=== PATIENT | female | born 1965 | race Caucasian/White ===

== ENCOUNTER 2023-01-04 05:42 | Emergency (ER) | payer BC | END 2023-01-04 06:50 | disposition home or self-care (01) | LOC: CSHERS 05:42 | DX: H92.03 Otalgia, bilateral (principal); J02.9 Acute pharyngitis, unspecified; E78.5 Hyperlipidemia, unspecified; I10 Essential (primary) hypertension | CPT/HCPCS: 99282 ==

== ENCOUNTER 2023-11-21 05:48 | Day surgery (SDC) | payer BC ==
[2023-11-16 09:00] VITALS: BMI 54.8
[2023-11-21] MEDS ORDERED: Bupivacaine/Epinephrine 0.25% 30 ML VIAL ONE (06:50)
[2023-11-21] MEDS ORDERED: LevoFLOXacin D5W 500 mg (100 mL) BAG ONE (07:11)
[2023-11-21] MEDS ORDERED: PROPOFOL 20 ML ONE (07:20)
[2023-11-21] MEDS ORDERED: fentaNYL 50 mcg/mL 1 mL Vial ONE ×2 (07:20→09:46)
[2023-11-21] MEDS ORDERED: Lidocaine 1% PF 5 ML VIAL ONE (07:20)
[2023-11-21] MEDS ORDERED: Rocuronium Bromide 10 MG/ML (10ML VIAL) ONE (07:20)
[2023-11-21] MEDS ORDERED: Bupivacaine HCl 0.5%/Epinephrine 1:200,000/PF 30 ml Vial ONE (07:22)
[2023-11-21] MEDS ORDERED: ePHEDrine Sulfate 50 MG/10 ML VIAL ONE (07:37)
[2023-11-21] MEDS ORDERED: HYDROcodone/Acetaminophen 5/325 mg Tablet ONE (10:21)
== END 2023-11-21 11:15 | disposition home or self-care (01) ==
LOC: CSHSDC 05:48
PROVIDERS: ATTEND Surgery
PROC: 0WUF4JZ Supplement Abdominal Wall with Synthetic Substitute, Percutaneous Endoscopic Approach (ICD-10-PCS; principal; 2023-11-21)
DX: K43.9 Ventral hernia without obstruction or gangrene (principal); K43.2 Incisional hernia without obstruction or gangrene; I10 Essential (primary) hypertension; E11.9 Type 2 diabetes mellitus without complications; E78.5 Hyperlipidemia, unspecified; G47.33 Obstructive sleep apnea (adult) (pediatric); K21.9 Gastro-esophageal reflux disease without esophagitis; Z79.899 Other long term (current) drug therapy; Z98.890 Other specified postprocedural states; Z88.6 Allergy status to analgesic agent; Z88.0 Allergy status to penicillin; Z91.018 Allergy to other foods; Z88.8 Allergy status to other drugs, medicaments and biological substances; Z88.1 Allergy status to other antibiotic agents; Z90.49 Acquired absence of other specified parts of digestive tract
CPT/HCPCS: 36416; C1781; J1956; J2704; J3010